=== PATIENT | female | born 1945 | race Caucasian/White ===

== ENCOUNTER 2016-08-22 22:00 | Emergency (ER) | payer OTHER ==
[~2016-08-22] VITALS: Ht 162.6 cm; Wt 100.0 kg
[~2016-08-22 22:00] MED LIST: CERTKIT IM; FOLI1TAB7 PO; LISI-787 PO; MULT-506 PO; PRED10TA PO; TRAM-10 PO
[2016-08-22 22:03] VITALS: TEMP 36.6; Ht 162.6 cm; Wt 100.0 kg
[2016-08-22] MEDS ORDERED: ONDANSETRON INJ 2 MG/ML 2 ML VIAL IV STA (22:44)
[2016-08-22 22:53] LABS: BASO % 0.1 %; BASO ABS # 0.01 K/uL (0-0.2); COMPLETE YES; EOS % 0.7 %; IG% 0.3 %; LYMPH % 7.6 %; LYMPH ABS # 0.78 K/uL (1.2-3.4); MEAN CELL VOLUME 91.5 fL (80-100); MEAN CORPUSCULAR HEMOGLOBIN 32.3 pg (25-34); MEAN CORPUSCULAR HGB CONC 35.3 g/dl (32-36); MEAN PLATELET VOLUME 10.7 fL (7.4-10.4); MONO % 5.6 %; NEUT % 85.7 %; PLATELET COUNT 262 K/uL (130-400); RED BLOOD COUNT 4.37 M/uL (4.2-5.4)
[2016-08-22 23:12] LABS: BUN/CREATININE RATIO 20.4 (10-20); CALCIUM 8.8 mg/dl (8.5-10.1); CREATININE 1.2 mg/dl (0.60-1.20); POTASSIUM 3.6 mmol/L (3.5-5.1)
[2016-08-22] MEDS ORDERED: PROMETHAZINE HCL INJ 12.5 MG in SODIUM CHLORIDE 0.9% 50ML 50 ML IV STA (23:15)
--- NOTE | 2016-08-22 23:30 | EMERGENCY ROOM VISIT NOTE ---
History Report prepared by [employer]tera: Jesse Rose Under the Supervision of: Dr. Amelia Muniz M.D. First contact with patient: 23:10 Chief Complaint: VOMITING Stated Complaint: VOMITING Nursing Triage Summary: Patient presents with a c/c of global abdominal pain with associated vomiting and diarrhea that started at approximatley 1500. Negative bloody diarrhea, negative chest pain, SOB, fever, chills. History of Present Illness The patient is a 71 year old female who presents to the Emergency Room with complaints of persistent vomiting that began this afternoon 8 hours prior to arrival. The patient states that she began vomiting this afternoon at 1530, and has been vomiting persistently ever since. She notes that the vomiting has also been accompanied by some diarrhea. There has been no blood in the vomit or stool , and she has no known sick family members. The patient does have a history of cholecystectomy, appendectomy, and hysterectomy. She is not on any blood thinning medications. 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 A total of 10 systems reviewed and were otherwise negative. Past Medical & Surgical Medical Problems: (1) HTN (hypertension) Family History FHx: gallbladder disease Hypertension Social History Smoking Status: Never Smoker Marital Status: Housing Status: lives with significant other Occupation Status: employed Current/Historical Medications Scheduled Alendronate/Cholecalciferol (Fosamax+D 70MG/2800 Iu), 1 TABLET PO WK Certolizumab Pegol (Cimzia), 1 DOSE IM MONTHLY Cranberry (Vaccinium Macrocarp (Cranberry), 1,000 MG PO DAILY Folic Acid (Folvite), 1 MG PO DAILY Lisinopril/Hctz (Zestoretic 20MG/12.5MG), 1 TAB PO DAILY Methotrexate (Methotrexate), 2.5 MG PO DIRECTED Multivitamin (Multivitamin), 1 TAB PO DAILY Prednisone Tab (Prednisone), 5 MG PO DAILY [arthritis injection], 1 DOSE INJ MONTHLY Scheduled PRN Tramadol (Ultram), 50 MG PO TID PRN for Pain Allergies Uncoded Allergies: PNC DEMEROL PERCOCET (Allergy, Unknown, 08/03/05) Physical Exam Vital Signs Date Time Temp Pulse Resp B/P Pulse Ox O2 Delivery O2 Flow Rate FiO2 08/23/16 00:48 87 20 125/66 93 08/22/16 23:36 83 20 124/66 95 Room Air 08/22/16 22:03 36.6 20 20 132/75 96 Room Air Physical Exam Vital signs reviewed. General: Obese female, in no significant distress. HEENT: Edentulous. No scleral icterus, PERRLA, neck supple. Atraumatic. Cardiovascular: Regular rate and rhythm, no extra sounds. Pulmonary: Clear to auscultation bilaterally, normal work of breathing. Abdomen: No tympani to percussion. Soft, nontender, nondistended, positive bowel sounds. Musculoskeletal: Atraumatic, no peripheral edema. Neurologic: Patient awake alert and oriented x 3, full strength in all 4 extremities. Cranial nerves 2 through 12 grossly intact. Skin: Warm, dry, no rash Medical Decision & Procedures Laboratory Results 08/22/16 22:40 Red Blood Count 4.37, Mean Corpuscular Volume 91.5, Mean Corpuscular Hemoglobin 32.3, Mean Corpuscular Hemoglobin Concent 35.3, Mean Platelet Volume 10.7, Neutrophils (%) (Auto) 85.7, Lymphocytes (%) (Auto) 7.6, Monocytes (%) (Auto) 5.6, Eosinophils (%) (Auto) 0.7, Basophils (%) (Auto) 0.1, Neutrophils # (Auto) 8.83, Lymphocytes # (Auto) 0.78, Monocytes # (Auto) 0.58, Eosinophils # (Auto) 0.07, Basophils # (Auto) 0.01 08/22/16 22:40 Test 08/22/16 22:40 White Blood Count 10.30 K/uL (4.8-10.8) Red Blood Count 4.37 M/uL (4.2-5.4) Hemoglobin 14.1 g/dL (12.0-16.0) Hematocrit 40.0 % (37-47) Mean Corpuscular Volume 91.5 fL (80-100) Mean Corpuscular Hemoglobin 32.3 pg (25-34) Mean Corpuscular Hemoglobin Concent 35.3 g/dl (32-36) Platelet Count 262 K/uL (130-400) Mean Platelet Volume 10.7 fL (7.4-10.4) Neutrophils (%) (Auto) 85.7 % Lymphocytes (%) (Auto) 7.6 % Monocytes (%) (Auto) 5.6 % Eosinophils (%) (Auto) 0.7 % Basophils (%) (Auto) 0.1 % Neutrophils # (Auto) 8.83 K/uL (1.4-6.5) Lymphocytes # (Auto) 0.78 K/uL (1.2-3.4) Monocytes # (Auto) 0.58 K/uL (0.11-0.59) Eosinophils # (Auto) 0.07 K/uL (0-0.5) Basophils # (Auto) 0.01 K/uL (0-0.2) RDW Standard Deviation 45.0 fL (36.4-46.3) RDW Coefficient of Variation 13.7 % (11.5-14.5) Immature Granulocyte % (Auto) 0.3 % Immature Granulocyte # (Auto) 0.03 K/uL (0.00-0.02) Anion Gap 10.0 mmol/L (3-11) Est Creatinine Clear Calc Drug Dose 50.2 ml/min Estimated GFR () 53.0 Estimated GFR (Non- 45.8 BUN/Creatinine Ratio 20.4 (10-20) Calcium Level 8.8 mg/dl (8.5-10.1) Total Bilirubin 1.2 mg/dl (0.2-1) Aspartate Amino Transf (AST/SGOT) 20 U/L (15-37) Alanine Aminotransferase (ALT/SGPT) 34 U/L (12-78) Alkaline Phosphatase 74 U/L (45-117) Total Protein 7.5 gm/dl (6.4-8.2) Albumin 3.8 gm/dl (3.4-5.0) Globulin 3.7 gm/dl (2.5-4.0) Albumin/Globulin Ratio 1.0 (0.9-2) Lipase 197 U/L (73-393) Laboratory results per my review. Medications Administered Medications (Trade) Dose Ordered Sig/Alecia Route Start Time Stop Time Status Last Admin Dose Admin Ondansetron HCl 4 mg 4 mg NOW STAT IV 08/22/16 22:44 08/22/16 22:46 DC 08/22/16 22:55 4 MG Promethazine HCl/ Sodium Chloride (Phenergan Inj/ Nss 50ml) 50.5 ml @ 204 mls/hr NOW STAT IV 08/22/16 23:15 08/22/16 23:29 DC 08/22/16 23:33 204 MLS/HR Ondansetron HCl (ZOFRAN ODT 4MG Home Pack) 1 homepack UD ONCE PO 08/23/16 00:45 08/23/16 00:46 DC 08/23/16 00:45 1 HOMEPACK ED Course 2314: Past medical records reviewed. The patient was evaluated in room C12. A complete history and physical examination was performed. 231: Ordered Promethazine HCl 12.5mg IV. 5: Ordered Zofran 1 homepack PO. 0047: Upon reevaluation, the patient appeared to have improvement of her symptoms. I discussed findings with her. She verbalized agreement of the treatment plan. The patient was discharged home. Medical Decision Differential diagnosis: Etiologies such as gastroenteritis, food borne illness, infections, appendicitis , diverticulitis, inflammatory bowel disease, obstruction, GI bleed, biliary pathology, as well as others were entertained. This pt was evaluated and appeared to be in no distress. IV access was obtained and pt was hydrated with NSS and given IV zofran with some improvement. Lab work was fairly unrevealing. Pt required IV phenergan d/t continued nausea. Pt was doing well and felt comfortable for d/c. She was d/c with zofran HP and f/u with her PCP this week for reevaluation. She will return to the ED for worsening of symptoms or any medical concerns. Impression Primary Impression: Vomiting Additional Impression: Diarrhea Scribe Attestation The scribe's documentation has been prepared under my direction and personally reviewed by me in its entirety. I confirm that the note above accurately reflects all work, treatment, procedures, and medical decision making performed by me. Departure Information Dispostion Home / Self-Care Referrals Jose Rivera M.D.(JUAN DANIEL) (PCP) Forms HOME CARE DOCUMENTATION FORM, IMPORTANT VISIT INFORMATION Patient Instructions My [facility] Additional Instructions Diagnosis: Vomiting and diarrhea Zofran 4 mg ODT every 6 hours as needed for nausea. Cipro on clear fluids and advance her diet slowly as tolerated. Avoid greasy and spicy foods. Avoid dairy until symptoms resolve. Follow-up with your doctor this week for reevaluation if symptoms persist. Return to the ER for worsening of symptoms or any medical concerns. Problem Qualifiers Primary Impression: Vomiting Vomiting type: unspecified Vomiting Intractability: unspecified Nausea presence: unspecified Qualified Codes: R11.10 - Vomiting, unspecified Additional Impression: Diarrhea Diarrhea type: unspecified type Qualified Codes: R19.7 - Diarrhea, unspecified
[2016-08-23] MEDS ORDERED: METH2.5T PO (00:08)
[2016-08-23] MEDS ORDERED: FSMD/70 PO (00:09)
[2016-08-23] MEDS ORDERED: CRAN500C2 PO (00:11)
[2016-08-23] MEDS ORDERED: ARTHRITIS INJ (00:12)
[2016-08-23] MEDS ORDERED: ONDANSETRON HOME PACK 4MG OD TAB PO ONE (00:45)
[2016-08-23 00:48] VITALS: BP 125/66; PULSE 87; O2SAT 93
== END 2016-08-23 00:51 | disposition home or self-care (01) ==
LOC: C.EDB 22:01 → C.EDC 08-23 00:51
DX: R11.10 Vomiting, unspecified (principal); R19.7 Diarrhea, unspecified; I10 Essential (primary) hypertension; E66.9 Obesity, unspecified; Z79.899 Other long term (current) drug therapy; Z88.5 Allergy status to narcotic agent; Z82.49 Family history of ischemic heart disease and other diseases of the circulatory system; Z83.79 Family history of other diseases of the digestive system

== ENCOUNTER 2020-09-23 06:22 | Inpatient (IN) ==
--- NOTE | 2020-09-02 09:40 | PAT Medication Instructions ---
Medication Instructions Date of Service September 02, 2020 Home Medications Medication Instructions Recorded multivit with 1 tab PO DAILY #30 tab 12/18/18 xddueurz-exmz-YB-lutein 8 mg iron-400 mcg-300 mcg tablet tramadol 50 mg tablet 50 mg PO Q6H PRN #30 tab 07/29/20 tramadol 50 mg tablet 50 mg PO TID PRN #30 tab 08/25/20 alendronate 10 mg tablet 10 mg PO QAM multivit with qrhnbelq-gppr-UQ-lutein 8 mg iron-400 mcg-300 mcg tablet 1 tab PO DAILY prednisone 5 mg tablet 5 mg PO QAM acetaminophen 1,000 mg PO BID PRN MDD atorvastatin 20 mg PO QPM folic acid 1 mg PO DAILY lisinopril-hydrochlorothiazide 1 tab PO QAM tramadol 50 mg tablet 50 mg PO Q6H PRN certolizumab pegol [Cimzia] 400 mg SUBCUT MONTHLY tramadol 50 mg tablet 50 mg PO TID PRN ASK your prescriber and surgeon certolizumab pegol [Cimzia] 400 mg SUBCUT MONTHLY alendronate 10 mg tablet 10 mg PO QAM STOP taking 2 weeks before surgery (or as soon as possible if surgery is within 2 weeks) multivit with jjtcqytz-psli-CM-lutein 8 mg iron-400 mcg-300 mcg tablet 1 tab PO DAILY DO NOT take the morning of surgery folic acid 1 mg PO DAILY lisinopril-hydrochlorothiazide 1 tab PO QAM Take morning of surgery With a small sip of water, OTHERWISE NOTHING TO EAT OR DRINK AFTER MIDNIGHT: prednisone 5 mg tablet 5 mg PO QAM acetaminophen 1,000 mg PO BID PRN MDD (okay to take up to 4 hours prior to surgery if needed) tramadol 50 mg tablet 50 mg PO Q6H PRN (okay to take up to 4 hours prior to surgery if needed) tramadol 50 mg tablet 50 mg PO TID PRN (okay to take up to 4 hours prior to surgery if needed) Take evening before surgery acetaminophen 1,000 mg PO BID PRN MDD (if needed) atorvastatin 20 mg PO QPM tramadol 50 mg tablet 50 mg PO Q6H PRN (if needed) tramadol 50 mg tablet 50 mg PO TID PRN (if needed) Other Notes If you have any questions please call us at [phone] or [phone] or [phone] or [phone]
--- NOTE | 2020-09-03 10:40 | Anesthesiology Consultation ---
Date of Service September 03, 2020 Assessment & Plan (1) Encounter for pre-operative examination: Per assessment on 09/03: Travel screen negative. No known COVID-19 positive contacts or current COVID-19 related symptoms. Patient received initial COVID vaccine 08/13 (getting second vaccine today, 09/03). Surgeon arranging preop COVID testing. Awaiting results. Chart Review Chart Review: Acceptable Risk for Surgery and Patient seen in Pre Admission Testing Teaching & Discussion Pre-Anesthesia Teaching/Discussion Notes: Instructed NPO after midnight before surgery,except medications with 15 cc of water. Medication instructions provided according to the PAT guidelines. History Surgery Operation Date: 09/23/20 10:55 Proposed Procedures p Right Reverse Total Shoulder Arthroplasty - David Vega, Height/Weight Height: 5 ft 4 in Weight: 104.7 kg Allergies Allergy/AdvReac Type Severity Reaction Status Date / Time acetaminophen AdvReac Mild Nausea Verified 08/15/20 11:25 [From Darvocet-N] oxycodone [From Percocet] AdvReac Mild Nausea, Verified 09/02/20 10:49 confusion propoxyphene AdvReac Mild Nausea Verified 08/15/20 11:25 [From Darvocet-N] Medications Home Medications Medication Instructions Recorded Confirmed Last Taken alendronate 10 mg tablet 10 mg PO QAM tab 12/18/18 08/15/20 01/29/19 multivit with 1 tab PO DAILY #30 tab 12/18/18 08/15/20 03/11/20 xolxxufy-bhzt-RL-lutein 8 mg iron-400 mcg-300 mcg tablet prednisone 5 mg tablet 5 mg PO QAM tab 12/18/18 08/15/20 03/12/20 04:30 acetaminophen 1,000 mg PO BID PRN MDD \\ 01/15/19 08/15/20 03/11/20 atorvastatin 20 mg PO QPM 02/20/20 08/15/20 03/11/20 folic acid 1 mg PO DAILY 02/20/20 08/15/20 03/11/20 lisinopril-hydrochlorothiazide 1 tab PO QAM 02/20/20 08/15/20 03/12/20 04:30 tramadol 50 mg tablet 50 mg PO Q6H PRN #30 tab 07/29/20 08/15/20 Unknown certolizumab pegol [Cimzia] 400 mg SUBCUT MONTHLY 08/15/20 08/15/20 Unknown tramadol 50 mg tablet 50 mg PO TID PRN #30 tab 08/25/20 Unknown Past Medical History Medical History Basal cell carcinoma of lower extremity s/p excision HTN (hypertension) Obesity Osteoarthritis Rheumatoid arthritis Exercise / Class Metabolic Activity III < 4 Walking/Shop/Light housework Past Family History Family History Grandfather (Maternal) Prostate cancer Other Family history non-contributory Denies family history of Colon cancer Ovarian cancer Myocardial infarction Breast cancer Past Surgical History Surgical History History of cataract surgery R/L (2019) History of surgery jaw bone implant History of tooth extraction Hx of knee surgery fatty tumor removed S/P appendectomy S/P bunionectomy S/P cholecystectomy S/P hysterectomy S/P tonsillectomy and adenoidectomy Social History Smoking Status: Never smoker Do You Dip or Chew Tobacco: No Hx Alcohol Use: Yes Alcohol type: beer alcohol intake frequency: holidays/special occasions only Hx Substance Use: No substance use type: does not use Review of Systems Occasional snoring. No apnea events. Patient denies chest pain, shortness of breath, fever, chills, cough, wheezing, palpitations. Physical Exam Vital Signs VITALS BP 146/88 P 74 TEMP 98.5 SP02 95%RA RESP 16 PHYSICAL Full neck and c-spine range of motion. Full TMJ range of motion. TMD 4 finger breaths (difficult to palpate) Mallampati Score 2 Dentition: full dentures upper/lower, lower metal bridge for denture placement Lungs: clear throughout to auscultation Cardiac: regular rate and rhythm with occasional extra beats, no murmurs noted Spine: normal Carotid arteries: negative bruit Extremities: no edema Thick neck Testing Laboratory Results 09/03/20 11:07 09/03/20 11:07 PT 10.4 Seconds (9.0-12.0) 09/03/20 11:07 INR 1.0 (0.9-1.1) 09/03/20 11:07 APTT 28.5 Seconds (21.0-31.0) 09/03/20 11:07 Blood Type O Positive 09/03/20 11:07 Antibody Screen NEGATIVE 09/03/20 11:07 Electrocardiogram Date: 09/03/20 SR with frequent PVC's at 79bpm. Otherwise "normal" ECG. No significant change compared to 01/15/19 per junior network administrator review. Chest X-Ray Date: 09/03/20 FINDINGS: PA and lateral chest radiographs are compared to study dated 08/19/2014. The heart is mildly enlarged noting atherosclerotic calcification of the thoracic aorta. The pulmonary vasculature is noncongested. There is mild bibasilar scarring/atelectasis. No airspace consolidation or pleural effusion is identified. There is no pneumothorax. The skeletal structures are osteopenic. The bony thorax appears intact. IMPRESSION: Mild cardiac enlargement with no active disease in the chest. Cardiac Catheterization Date: 09/03/20 FINDINGS: There are multilevel arthritic changes. The prevertebral soft tissues are normal. There is no evidence of instability on flexion or extension. IMPRESSION: No acute fractures. Multilevel arthritic change. No evidence of instability on flexion or extension
[2020-09-03 11:51] LABS: Basophils # (auto) 0.02 K/uL (0-0.2); Basophils % (auto) 0.2 %; Eosinophils # (auto) 0.07 K/uL (0-0.5); Eosinophils % (auto) 0.8 %; Hematocrit (blood only) 41.7 % (37-47); Hemoglobin 13.8 g/dL (12.0-16.0); Immature Granulocytes # (auto) 0.03 K/uL (0.00-0.02); Immature Granulocytes % (auto) 0.3 %; Lymphocytes # (auto) 1.61 K/uL (1.2-3.4); Lymphocytes % (auto) 18.4 %; Mean Corpuscular Hemoglobin 30.9 pg (25-34); Mean Corpuscular Hgb Conc 33.1 g/dL (32-36); Mean Corpuscular Volume 93.3 fL (80-100); Mean Platelet Volume 12.3 fL (7.4-10.4); Monocytes % (auto) 6.8 %; Neutrophils # (auto) 6.43 K/uL (1.4-6.5); Neutrophils % (auto) 73.5 %; Platelet Count 291 K/uL (130-400); RDW Coefficient of Variation 13.9 % (11.5-14.5); RDW Standard Deviation 47.2 fL (36.4-46.3); Red Blood Count 4.47 M/uL (4.2-5.4); White Blood Count 8.76 K/uL (4.8-10.8)
--- NOTE | 2020-09-03 11:52 | XRay Report ---
TWO VIEW CHEST CLINICAL HISTORY: Preoperative examination. FINDINGS: PA and lateral chest radiographs are compared to study dated 08/19/2014. The heart is mildly enlarged noting atherosclerotic calcification of the thoracic aorta. The pulmonary vasculature is no ncongested. There is mild bibasilar scarring/atelectasis. No airspace consolidation or pleural effusi on is identified. There is no pneumothorax. The skeletal structures are osteopenic. The bony thorax a ppears intact. IMPRESSION: Mild cardiac enlargement with no active disease in the chest. ACT 112: Negative or not required by law. Electronically signed by: Ravi Aguilar M.D. 09/03/2020 11:51 AM
[2020-09-03 12:05] LABS: Partial Thromboplastin Ratio 1.1; Partial Thromboplastin Time 28.5 Seconds (21.0-31.0); Prothrombin Time 10.4 Seconds (9.0-12.0)
--- NOTE | 2020-09-03 12:41 | XRay Report ---
FLEXION AND EXTENSION LATERAL VIEWS OF THE CERVICAL SPINE (3 VIEWS) CLINICAL HISTORY: RHEUMATOID ARTHRITIS preoperative evaluation COMPARISON STUDY: No previous studies for comparison. FINDINGS: There are multilevel arthritic changes. The prevertebral soft tissues are normal. There is no evidence of instability on flexion or extension. IMPRESSION: 1. No acute fractures 2. Multilevel arthritic change 3. No evidence of instability on flexion or extension ACT 112: Negative or not required by law. Electronically signed by: Graeme Rutherford M.D. 09/03/2020 12:39 PM
[2020-09-03 13:31] LABS: BUN Creatinine Ratio 21.2 (10-20); Calcium 10.6 mg/dl (8.5-10.1); Creatinine Clr Calc Pharmacy 46.2 ml/min; Est GFR (African American) 48.6; Est GFR (Non-African American) 41.9; Potassium 4.9 mmol/L (3.5-5.1)
--- NOTE | 2020-09-03 15:30 | Electrocardiogram Report ---
Test Reason : Blood Pressure : / mmHG Vent. Rate : 079 BPM Atrial Rate : 079 BPM P-R Int : 174 ms QRS Dur : 084 ms QT Int : 392 ms P-R-T Axes : 063 028 058 degrees QTc Int : 449 ms Sinus rhythm with frequent Premature ventricular complexes Otherwise normal ECG When compared with ECG of 15-JAN-2019 15:50, No significant change was found Confirmed by Roque Dutta ([id number]) on 09/03/2020 3:30:25 PM Referred By: David Vega Confirmed By:Roque Dutta
--- NOTE | 2020-09-18 10:54 | History & Physical Report ---
Date of Service September 18, 2020 Assessment & Plan (1) Rotator cuff arthropathy of right shoulder: We will proceed with a right reverse shoulder arthroplasty. Postoperatively she will be placed in a sling and kept overnight in the hospital for postoperative medical management. She plans to go to outpatient physical therapy upon discharge. History of Present Illness Chief Complaint: Cuff arthropathy of the right shoulder. Primary Care Provider: Jose Rivera MD Deborah is a pleasant 75-year-old female who has been having right shoulder pain since April 2020. 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 MRI and clinical examination have been diagnostic for rotator cuff arthropathy of the right shoulder. After failing conservative treatment, she has elected to proceed with a right reverse shoulder arthroplasty.. Allergies Allergy/AdvReac Type Severity Reaction Status Date / Time acetaminophen AdvReac Mild Nausea Verified 08/15/20 11:25 [From Darvocet-N] oxycodone [From Percocet] AdvReac Mild Nausea, Verified 09/02/20 10:49 confusion propoxyphene AdvReac Mild Nausea Verified 08/15/20 11:25 [From Darvocet-N] Home Medications Medication Instructions Recorded Confirmed Type alendronate 10 mg tablet 10 mg PO QAM tab 12/18/18 08/15/20 History multivit with 1 tab PO DAILY #30 tab 12/18/18 08/15/20 Rx uyowpcqy-gvff-JL-lutein 8 mg iron-400 mcg-300 mcg tablet prednisone 5 mg tablet 5 mg PO QAM tab 12/18/18 08/15/20 History acetaminophen 1,000 mg PO BID PRN MDD \ 01/15/19 08/15/20 History folic acid 1 mg PO DAILY 02/20/20 08/15/20 History lisinopril-hydrochlorothiazide 1 tab PO QAM 02/20/20 08/15/20 History tramadol 50 mg tablet 50 mg PO Q6H PRN #30 tab 07/29/20 08/15/20 Rx certolizumab pegol [Cimzia] 400 mg SUBCUT MONTHLY 08/15/20 08/15/20 History tramadol 50 mg tablet 50 mg PO TID PRN #30 tab 08/25/20 Rx atorvastatin 20 mg tablet 20 mg PO QPM #90 tab 09/15/20 Rx Past Med/Surg History Medical History Basal cell carcinoma of lower extremity s/p excision HTN (hypertension) Obesity Osteoarthritis Rheumatoid arthritis Surgical History History of cataract surgery R/L (2019) History of surgery jaw bone implant History of tooth extraction Hx of knee surgery fatty tumor removed S/P appendectomy S/P bunionectomy S/P cholecystectomy S/P hysterectomy S/P tonsillectomy and adenoidectomy Family History Grandfather (Maternal) Prostate cancer Other Family history non-contributory Denies family history of Colon cancer Ovarian cancer Myocardial infarction Breast cancer Social History Smoking Status: Never smoker Second Hand Exposure: No; Hx Alcohol Use: Yes Alcohol type: beer Hx Substance Use: No Preferred Language: Luxembourgish Communication Ability: Effective Chemical Analytical Sampler Required: No Beliefs That Will Affect Care: None Current Living Situation: Spouse Feels Safe at Home: Yes Assistive Devices: None Review of Systems All systems reviewed & are unremarkable except as noted in HPI & below. Physical Exam On physical examination of the right shoulder, she has about 3 out of 5 motion with the full can test and external rotation. She has decreased range of motion throughout. She has pain in the subacromial region and over the glenohumeral joint line.. Constitutional WD/WN, vitals as above Eyes PERRL, conjunctivae normal, anicteric sclerae ENMT external ear and nose normal, oropharynx normal Neck trachea midline, no thyromegaly Respiratory normal respiratory effort Cardiovascular RRR, no murmur, no edema Gastrointestinal (Abdomen) normal bowel sounds, soft, nontender, no hepatosplenomegaly Psychiatric A+Ox3, euthymic affect Results & Data Results & Data Laboratory Results . Diagnostic Findings X-rays of the right shoulder do show advanced osteoarthritis with superior migration of the humeral head on the glenoid. MRI of the right shoulder shows a large retracted right rotator cuff tear.. PG Care Time/CCT Total # of Minutes Spent Total Time Spent with Patient: Total time spent is greater than 50% in psych coordinator rdination of care (as documented) at patient's floor/unit and/or counseling patient: Coding Level of Care Code None Diagnoses Rotator cuff arthropathy of right shoulder M12.811
[~2020-09-23 06:22] MED LIST changes: +ACETAMINOPHEN 500 MG TAB PO SCH; -CERTKIT IM; +FAMOTIDINE 20 MG TAB PO SCH; -FOLI1TAB7 PO; +GABAPENTIN 300 MG CAP PO SCH; -LISI-787 PO; +LR 15ML/HR IV SCH; +LR 60ML/HR IV SCH; -MULT-506 PO; -PRED10TA PO; +ROPIVACAINE 0.5% HCL/PF 150 MG, BUPIVACAINE 0.75% MPF 20 ML, EPINEPHrine 30MG/30ML (OR ... INSTIL SCH; -TRAM-10 PO; +TRANEXAMIC ACID 1,000 MG **IV Intra-op IV SCH; +TRANEXAMIC ACID 1,000 MG **IV Pre-op IV SCH; +ceFAZolin 2000MG 2,000 MG/15 ML SYR IV SCH; +dexAMETHasone 4 MG TAB PO SCH
[2020-09-23] MEDS ORDERED: BUPIVACAINE 0.5 % 5 MG/1 ML PF 10ML VIAL ONE (06:27)
--- NOTE | 2020-09-23 06:56 | History & Physical Bridge Note ---
Date of Service September 23, 2020 History & Physical Bridge Note I have examined the patient, reviewed the History & Physical and in the interval since the performance of the History & Physical I have noted the following changes of clinical significance: no changes noted
[2020-09-23] MEDS ORDERED: LIDOCAINE HCL 2% 2 ML VIAL/AMP(20MG/ML) INFIL ONE (07:36)
[2020-09-23] MEDS ORDERED: SUCCINYLCHOLINE CHLORIDE 20 MG/ML 10 ML VIAL IV ONE (07:36)
[2020-09-23] MEDS ORDERED: PROPOFOL IV EMULSION 10 MG/ML 20 ML VIAL IV ONE (07:36)
[2020-09-23] MEDS ORDERED: KETAMINE 50 MG/5 ML SYRINGE ONE (07:36)
[2020-09-23] MEDS ORDERED: MIDAZOLAM HCL 1 MG/ML 2ML VIAL ONE (07:36)
[2020-09-23] MEDS ORDERED: fentaNYL citrate 100 MCG/2 ML VIAL ONE (07:36)
[2020-09-23] MEDS ORDERED: ONDANSETRON INJ 2 MG/ML 2 ML VIAL ONE (07:36)
[2020-09-23] MEDS ORDERED: ROCURONIUM BROMIDE 10 MG/ML 5 ML VIAL IV ONE (07:36)
[2020-09-23] MEDS ORDERED: DEXAMETHASONE SOD INJ 4 MG/ML VIAL ONE (07:36)
[2020-09-23] MEDS ORDERED: ORTHO JOINT ANESTHETIC ONE (08:52)
[2020-09-23] MEDS ORDERED: PHENYLEPHRINE 100MCG/ML 5ML SYR ONE (09:54)
[2020-09-23] MEDS ORDERED: ePHEDrine sulfate 50 MG/ML SYR ONE (09:54)
--- NOTE | 2020-09-23 10:28 | Operative Report ---
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 I identified the patient and participated in the time-out.: Yes Procedure Operation Date: 09/23/20 09:05 Actual Procedures p Right Reverse Total Shoulder Arthroplasty(Right) with open biceps tenodesis as a distinct and separate procedure (modifier 59)- David Vega DO Surgeon David Vega DO Gate Shear Operator David Segal PAC Estimated Blood Loss 200 Findings Consistent with Post-Op Diagnosis Specimens Right humeral head Complications none Disposition Disposition: Recovery Room Indications Deborah is a pleasant 75-year-old female who presented my office with chronic worsening right shoulder pain and weakness. MRI and x-rays were diagnostic for rotator cuff arthropathy of the right shoulder. After failing extensive conservative treatment, she elected proceed with a right reverse shoulder arthroplasty. Description of Procedure A CPT code modifier 59: The long head of the biceps tendon was enlarged and inflamed consistent with tendinopathy. A tenodesis was opted. This was a separate and distinct portion of the procedure. For these reasons, a CPT code modifier 59 will be added to this case. Implants used: I used a [employer] Comprehensive reverse total shoulder arthroplasty system with a size 13 press fit micro humeral stem, a +3 offset humeral tray and a standard humeral bearing, a 25 mm small augment baseplate with a 6.5 mm central screw and superior and inferior locking screws, and a size 40 mm eccentric glenosphere. Deborah arrived at [facility] for the above procedure. She was seen in the preoperative holding area and the operative extremity was identified and signed. She was given a preoperative antibiotic, TXA, and an interscalene nerve block. She was taken back to the operating room, laid on table in supine position, and put under general anesthesia. She was then put into the beachchair position. The shoulder was then prepped and draped in sterile fashion. A timeout was done and the patient and the operative extremity was properly identified. A deltopectoral approach was used. Dissection was taken down through the fascia and the deltoid was retracted laterally and the conjoined tendon was retracted medially. The anterior shoulder was exposed. The biceps groove was opened up and the biceps tendon was examined extensively. The biceps tendon demonstrated enlargement and inflammatory changes consistent with longstanding inflammation in the context of osteoarthritis and cuff arthropathy. The long head of the biceps tendon was then tenodesed to the upper border of the pectoralis major. This was a separate and distinct portion of the procedure. The subscapularis was then directly released off the lesser tuberosity with a peel technique. The inferior capsule was released and the humeral head was dislocated. A canal finding reamer was sent down the center of the humeral canal. Seq uential reaming up to a size 13 reamer was done. Off that reamer, a proximal humeral resection guide was placed. The proximal humerus was resected at 135 of inclination and 25 of retroversion. Osteophytes were then removed and the glenoid was exposed. Time was spent doing a complete capsular and labral release. The glenoid guide was then placed in the inferior aspect of the glenoid. A 3.2 mm Steinmann pin was then placed into the glenoid vault at 10 of inclination. The glenoid baseplate was then reamed. The final size 25 mm small augment baseplate was then impacted in the place. A 6.5 mm central screw was then placed followed by superior and inferior locking screws. A 40 mm eccentric glenosphere was then impacted into place. Surrounding soft tissues were then injected with 100 cc an orthopedic pain control cocktail. The proximal humerus was then exposed. Sequential broaching of the humerus up to a size 13 broach was done. Off that broach a +3 offset humeral tray was trialed. The shoulder was then reduced, brought through a full range of motion, and felt to be stable. The shoulder was then dislocated and the broach was removed. The final size 13 micro press-fit humeral stem was then impacted into place. A standard humeral bearing was then snapped onto a +3 offset humeral tray. The humeral tray was then impacted onto the humeral stem. The shoulder was once again reduced, brought through a full range of motion, and felt to be stable. The subscapularis was then tenodesed back to the lesser tuberosity with transosseous FiberWire sutures and side to side sutures with the arm in 45 of external rotation. A dilute betadyne lavage was then done for 3 minutes. The joint was then irrigated with normal saline solution. Hemostasis was obtained. The interval was closed with 2-0 Vicryl suture. The skin was then closed with 2-0 Vicryl and tami. A Silverlon dressing was placed and the arm was rested in a regular arm sling. She was then extubated and transferred to a hospital bed. She taken to the postanesthesia care unit in stable condition. She tolerated the procedure well. David Segal PA-C, was present for the entire procedure. He was critical for patient positioning, prepping, draping, retraction exposure, wound closure and application of sterile dressing. I attest to the content of the Intraoperative Record and any orders documented therein. Any exceptions are noted below.
[2020-09-23] MEDS ORDERED: ePHEDrine sulfate 50 MG/ML AMP IV PRN (10:31)
[2020-09-23] MEDS ORDERED: ATROPINE SULFATE 0.1 MG/ML 10ML SYR IV PRN (10:31)
[2020-09-23] MEDS ORDERED: PROMETHAZINE HCL 12.5 MG in SODIUM CHLORIDE 0.9% 50 ML IV PRN (10:31)
[2020-09-23] MEDS ORDERED: LABETALOL HCL IV 5 MG/ML 20ML IV PRN (10:31)
[2020-09-23] MEDS ORDERED: FLUMAZENIL 0.1 MG/1 ML 10 ML VIAL IV PRN (10:31)
[2020-09-23] MEDS ORDERED: fentaNYL citrate 100 MCG/2 ML VIAL IV PRN (10:31)
[2020-09-23] MEDS ORDERED: NALOXONE HCL 0.4 MG/1 ML VIAL/CARP IV PRN ×2 (10:31→11:49)
[2020-09-23] MEDS ORDERED: ONDANSETRON INJ 2 MG/ML 2 ML VIAL IV PRN ×2 (10:31→11:49)
--- NOTE | 2020-09-23 11:14 | XRay Report ---
XR shoulder RT min 2V routine CLINICAL HISTORY: Post shoulder surgery COMPARISON: Right shoulder radiographs June 03, 2020. FINDINGS: Alignment of the reverse total right shoulder arthroplasty is anatomic. There is no peripr osthetic fracture or unexpected radiopaque foreign body. There are skin tami. IMPRESSION: Expected findings following reverse total right shoulder arthroplasty. ACT 112: Negative or not required by law. Electronically signed by: Shaq Bro M.D. 09/23/2020 11:12 AM
--- NOTE | 2020-09-23 11:27 | Anesthesiology Progress Note ---
Date of Service September 23, 2020 Anesthesia Post Procedure Vital Signs Vital Signs: Temp Pulse Pulse Resp BP Pulse Ox 09/23/20 11:20 36.4 C L 84 22 131/79 94 09/23/20 11:10 87 22 133/79 94 09/23/20 11:00 91 H 20 142/89 H 95 09/23/20 10:50 36.3 C L 87 22 150/89 H 93 09/23/20 07:00 36.8 C 80 18 153/103 H 97 Pain Intensity Right Shoulder: Pain Intensity: 9 Transfer of Care Handoff Completed per policy Notes Mental Status: alert / awake / arousable Patient Amnestic to Procedure: Yes Nausea / Vomiting: adequately controlled Pain: adequately controlled Airway Patency, RR, SpO2: stable & adequate BP & HR: stable & adequate Hydration State: stable & adequate Anesthetic Complications: no major complications apparent
[2020-09-23] MEDS ORDERED: METOCLOPRAMIDE HCL INJ 5 MG/ML 2 ML VIAL IV PRN (11:49)
[2020-09-23] MEDS ORDERED: MAGNESIUM HYDROXIDE SUSP 30 ML UDC PO PRN (11:49)
[2020-09-23] MEDS ORDERED: HYDROmorphone INJ 0.5 MG/0.5 ML SYR IV PRN (11:49)
[2020-09-23] MEDS ORDERED: HYDROCODONE/ACETAMOPHEN 5/325MG TAB PO PRN (11:49)
[2020-09-23] MEDS ORDERED: bisacodyL 10 MG SUPP PR PRN (11:49)
[2020-09-23] MEDS ORDERED: traMADol HCL 50 MG TABLET PO PRN (11:49)
[2020-09-23] MEDS: ACETAMINOPHEN 500 MG TAB PO SCH ×2 (14:50→21:50)
[2020-09-23] MEDS: KETOROLAC TROMETHAMINE 15 MG/ML VIAL IV SCH ×2 (14:51→19:47)
[2020-09-23] MEDS: SODIUM CHLORIDE 0.9% 1000ML 1,000 ML IV SCH ×2 (14:51→21:43)
[2020-09-23] MEDS ORDERED: LORATADINE 10 MG TAB PO ONE (17:51)
[2020-09-23] MEDS: ceFAZolin 2000MG 2,000 MG/15 ML SYR IV SCH (18:41)
[2020-09-23] MEDS: LORATADINE 10 MG TAB PO SCH (18:55)
[2020-09-23] MEDS ORDERED: SENNA 8.6 MG TAB PO SCH (21:00)
[2020-09-23] MEDS ORDERED: ATORVASTATIN 20 MG TAB PO SCH (21:00)
[2020-09-23] MEDS: DOCUSATE SODIUM 100 MG CAP PO SCH (21:50)
[2020-09-24] MEDS: KETOROLAC TROMETHAMINE 15 MG/ML VIAL IV SCH ×2 (03:11→08:53)
[2020-09-24] MEDS: ceFAZolin 2000MG 2,000 MG/15 ML SYR IV SCH (03:12)
[2020-09-24] MEDS: ACETAMINOPHEN 500 MG TAB PO SCH (05:58)
[2020-09-24] MEDS ORDERED: ALENDRONATE SODIUM 10 MG TAB PO SCH (06:30)
--- NOTE | 2020-09-24 06:40 | Orthopedic Progress Note ---
Date of Service September 24, 2020 Assessment & Plan (1) Status post reverse arthroplasty of right shoulder: Overall she is doing very well. She is not having much pain in the right shoulder. She will be seen by physical therapy today for ambulation and range of motion exercises. She can be discharged home later today. She will follow- up with orthopedics in 2 weeks. Rosa Cabrera was seen and examined at bedside this morning. Overall she is doing very well. She is not having any pain in the right shoulder. She was able to get some sleep last night. She has no complaints.. Review of Systems All systems reviewed & are unremarkable except as noted in HPI & below. Physical Exam On physical examination of the right shoulder, the dressing is clean and dry. Her radial, median, and ulnar nerves are checked and intact at her wrist. Her axillary nerve was not checked yet. She is wearing her sling as instructed.. Results & Data Results & Data Laboratory Results . Diagnostic Findings Postoperative x-rays of the right shoulder show the prosthesis to be in anatomic alignment without any evidence of fracture, dislocation, or loosening.. PG Care Time/CCT Total # of Minutes Spent Total Time Spent with Patient: Total time spent is greater than 50% in coordination of care (as documented) at patient's floor/unit and/or counseling patient: Coding Level of Care Code 42931 Post Operative Follow-Up Diagnoses Status post reverse arthroplasty of right shoulder Z96.611
--- NOTE | 2020-09-24 06:41 | Discharge Summary ---
Date of Service September 24, 2020 Admission HPI (Per Admitting) Deborah is a pleasant 75-year-old female who has been having right shoulder pain since April 2020. 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 MRI and clinical examination have been diagnostic for rotator cuff arthropathy of the right shoulder. After failing conservative treatment, she has elected to proceed with a right reverse shoulder arthroplasty.. Admission Exam (Per Admitting) On physical examination of the right shoulder, she has about 3 out of 5 motion with the full can test and external rotation. She has decreased range of motion throughout. She has pain in the subacromial region and over the glenohumeral joint line.. Principal Diagnosis Same as "Discharge Diagnosis" noted below under Discharge Instructions. Discharge Exam On physical examination of the right shoulder, the dressing is clean and dry. Her radial, median, and ulnar nerves are checked and intact at her wrist. Her axillary nerve was not checked yet. She is wearing her sling as instructed.. Discharge Data Procedures Performed Operation Date: 09/23/20 09:05 Actual Procedures p Right Reverse Total Shoulder Arthroplasty(Right) - David Vega DO Ordered Studies 09/23/20 05:00 US - OR guided needle placemen Routine Hospital Course (1) Status post reverse arthroplasty of right shoulder: On September 23, 2020 Deborah arrived at [facility] and underwent a right reverse shoulder arthroplasty without complication. She had a general anesthetic and a right interscalene nerve block. Postoperatively she was placed in a sling and transferred to the general orthopedic floors. Her hospital course was uneventful. On postop day #1 her vital signs were stable and her pain was well controlled. She was able to participate well with physical therapy doing ambulation and range of motion exercises. She was then discharged home. She will follow-up with orthopedics in 2 weeks. PG Care Time/CCT Total # of Minutes Spent Total Time Spent with Patient: Total time spent is greater than 50% in coordination of care (as documented) at patient's floor/unit and/or counseling patient: Discharge Plan Discharge Items Patient Disposition: Home - Home Health Services Reason For Visit: DJD Right Shoulder Discharge Diagnosis: Right reverse shoulder Activity: As commented below Non-emergency contact: Surgeon Call non-emergency contact if: your wound has increased redness and your wound has increased drainage Follow-up/Referrals: Jose Rivera MD [Primary Care Provider] - Diet: Regular Addtl Attending Provider Instructions: Activity and Therapy Recommendations: * If you are using [facility] then therapy will be provided at your home until they feel you have accomplished all of your goals. * If you are using [facility] then Physical Therapy will be provided until they feel you are ready to start Outpatient Physical Therapy. * If you are not using home therapy then Outpatient Physical Therapy should start about 3-5 days from your day of surgery. Therapy will last about 8-12 weeks * Wear your sling for 3 weeks, unless otherwise instructed. You may remove your sling to shower and to dress, but otherwise, you should be in your sling at all times, including while sleeping * The shoulder replacement is very stable and you can use your hand while in the sling * You were shown a series of exercises in the hospital. Do these exercises daily including the exercises you were shown in physical therapy. Medications: * Narcotic You will likely be sent home from the hospital with a prescription for the narcotic pain medication that worked best throughout your stay. * Other medications may be prescribed for specific circumstances. If you have any questions, please call the office at . * Resume previous home medications unless otherwise instructed Dressing Care: Leave the Silverlon dressing in place for 7 days. After 7 days you may remove the dressing. If the incision is not draining then you may leave the tami open to air. If there is a little bit of drainage or if the tami are getting stuck on your clothing then cover the incision with a dry dressing. The tami will be removed at your 2 week follow-up appointment. Showering: You may shower with the Silverlon dressing in place. Do not let the shower spray hit the dressing directly. Pat the Silverlon dressing dry. If the dressing becomes wet underneath, then simply remove the dressing. Keep the incision dry until you are 7 days out from the day of surgery. After 7 days you may remove the Silverlon dressing and shower with the tami exposed. Let soapy water run over the tami and pat them dry. Do not scrub or soak the incision. Things To Watch For: * Drainage from the incision site that occurs more than one week after your surgery. * Increased redness at the incision site. * Fever above 102 degrees Fahrenheit. * Unusual chest pain or shortness of breath. * Call [facility] at with any of the above problems Follow-Up Visit: Follow-up with Dr. Vega's PA (David Segal) 2-3 weeks after your day of surgery. He will remove your tami and answer any questions. If you have any additional questions or concerns, Dr Vega is usually in the office at the same time and will be available An appointment was probably scheduled when you signed-up for surgery in the office. If you have any questions call More detailed instructions as well as Frequently Asked Questions were provided in a folder by our office when you signed-up for surgery. Please review these instructions when you get home. If you have any further questions or concerns, please feel free to call the office at [phone] Pending Studies at Discharge: No Stand-Alone Forms: [facility] Medications and DC Order Prescriptions: Continued atorvastatin 20 mg tablet 20 mg PO QPM Qty: 90 RF: 3 alendronate 10 mg tablet 10 mg PO QAM RF: 0 prednisone 5 mg tablet 5 mg PO QAM RF: 0 Centrum Silver Women 8 mg iron-400 mcg-300 mcg tablet 1 tab PO DAILY Qty: 30 RF: 0 acetaminophen 500 mg Tablet 1,000 mg PO BID MDD \\ PRN (Reason: aches and pains) RF: 0 lisinopril-hydrochlorothiazide 20-12.5 mg tablet 1 tab PO QAM RF: 0 folic acid 1 mg Tablet 1 mg PO DAILY RF: 0 Cimzia 400 mg/2 mL (200 mg/mL x 2) Syringe Kit 400 mg SUBCUT MONTHLY RF: 0 tramadol 50 mg tablet 50 mg PO TID PRN (Reason: pain) Qty: 30 RF: 0 Discontinued tramadol 50 mg tablet 50 mg PO Q6H PRN (Reason: pain) Qty: 30 RF: 0 Discharge Orders: Discharge Order (Routine); Ordered 09/24/20 Ordered By: David Vega Admission Data Admit Date/Time: 09/23/20 10:50 Attending Provider: David Vega Admit Provider: David Vega Primary Care Provider: Jose Rivera
[2020-09-24] MEDS: LORATADINE 10 MG TAB PO SCH (08:52)
[2020-09-24] MEDS: DOCUSATE SODIUM 100 MG CAP PO SCH (08:52)
[2020-09-24] MEDS ORDERED: FOLIC ACID 1 MG TAB PO SCH (09:00)
[2020-09-24] MEDS ORDERED: LISINOPRIL/HCTZ 20/12.5MG 1 TAB TAB PO SCH (09:00)
[2020-09-24] MEDS ORDERED: predniSONE 5 MG TAB PO SCH (09:00)
[2020-09-24] MEDS ORDERED: MULTIVITAMIN TAB PO SCH (09:00)
== END 2020-09-24 12:05 | disposition home or self-care (01) | DRG 483 ==
LOC: ASU 06:22 → 3E 10:50

== ENCOUNTER 2021-05-26 14:23 | Inpatient (IN) ==
[2021-05-26] MEDS ORDERED: ONDANSETRON INJ 2 MG/ML 2 ML VIAL IV STA (14:32)
--- NOTE | 2021-05-26 14:39 | Emergency Department Note ---
History of Present Illness General Chief complaint: Nausea Stated complaint: ILLNESS, Time Seen by Provider: 05/26/21 14:27 Source: patient Mode of arrival: EMS History of Present Illness Provider complaint: Vomiting and diarrhea Onset (ago): hour(s) Location: abdomen Pain Consistency: + intermittent Quality: + other (Vomiting and diarrhea without blood) Relieved By: + none Exacerbated By: + none Associated symptoms: + cough and + nausea/vomiting; no chest pain, no fever/chills, no malaise or no shortness of breath This is a 76-year-old female presents with vomiting and diarrhea starting at 3:30 AM today. The patient states that she has vomited and had diarrhea mu ltiple times. She states the diarrhea is loose without blood. She denies any recent antibiotic use or foreign travel. Her is not ill with similar symptoms. She did not eat anything out of the ordinary. She has no associated abdominal pain. She denies any fever. She did start having sinus congestion and a mild cough over the past 3-4 days. She denies any loss of taste or smell, malaise, or fevers. She has been vaccinated for COVID-19. She was due to get a booster shot tomorrow. She has had no urinary symptoms. She is vaccinated for the flu. Home Medications Medication Instructions Recorded Confirmed Type alendronate 10 mg tablet 10 mg PO QAM tab 12/18/18 05/26/21 History multivit with 1 tab PO DAILY #30 tab 12/18/18 05/26/21 Rx ucrjkuya-[id number]-ZN-lutein 8 mg iron-400 mcg-300 mcg tablet (Centrum Silver Women) prednisone 5 mg tablet 5 mg PO QAM tab 12/18/18 05/26/21 History acetaminophen 500 mg tablet 1,000 mg PO BID PRN MDD \ 01/15/19 05/26/21 History folic acid 1 mg tablet 1 mg PO DAILY 02/20/20 05/26/21 History lisinopril 20 1 tab PO QAM 02/20/20 05/26/21 History mg-hydrochlorothiazide 12.5 mg tablet certolizumab pegol (Cimzia) 400 mg SUBCUT MONTHLY 08/15/20 05/26/21 History atorvastatin 20 mg tablet 20 mg PO QPM #90 tab 09/15/20 05/26/21 Rx Allergies Allergy/AdvReac Type Severity Reaction Status Date / Time oxycodone [From Percocet] AdvReac Mild Nausea, Verified 05/26/21 16:43 confusion propoxyphene AdvReac Mild Nausea Verified 05/26/21 16:43 [From Darvocet-N] Past Med/Surg History Medical History Basal cell carcinoma of lower extremity s/p excision HTN (hypertension) Obesity Osteoarthritis Rheumatoid arthritis Surgical History History of cataract surgery R/L (2019) History of surgery jaw bone implant History of tooth extraction Hx of knee surgery fatty tumor removed S/P appendectomy S/P bunionectomy S/P cholecystectomy S/P hysterectomy S/P tonsillectomy and adenoidectomy Family History Grandfather (Maternal) Prostate cancer Other Family history non-contributory Denies family history of Colon cancer Ovarian cancer Myocardial infarction Breast cancer Social History Smoking Status: Never smoker Second Hand Exposure: No; Hx Alcohol Use: Yes Alcohol type: beer Hx Substance Use: No Preferred Language: Citizen Of [place] Communication Ability: Effective 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 and A total of 10 systems reviewed and were otherwise negative Physical Exam Vital Signs Vital Signs - 24 hr 05/26/21 14:29 05/26/21 15:00 05/26/21 16:07 Temperature 37 C Temperature Source Oral Pulse Rate 89 Pulse Rate [Radial] 77 Respiratory Rate 20 18 Blood Pressure 147/100 H Blood Pressure [Right Arm] 127/85 Blood Pressure Mean 115 Blood Pressure Mean [Right Arm] 99 Pulse Oximetry 95 92 89 L Oxygen Delivery Method Nasal Cannula Nasal Cannula Room Air Oxygen Flow Rate 2 2 Sepsis Recent Fever Within 48 Hours No Sepsis New/Unexplained Change in Mental Status No Sepsis Action Taken by Nursing No Action Required 05/26/21 16:08 Temperature Temperature Source Pulse Rate Pulse Rate [Radial] 81 Respiratory Rate 20 Blood Pressure Blood Pressure [Right Arm] 150/97 H Blood Pressure Mean Blood Pressure Mean [Right Arm] 114 Pulse Oximetry 92 Oxygen Delivery Method Nasal Cannula Oxygen Flow Rate 2 Sepsis Recent Fever Within 48 Hours Sepsis New/Unexplained Change in Mental Status Sepsis Action Taken by Nursing Constitutional: Vital signs reviewed. Eyes: Pupils are equal round reactive to light. Conjunctiva are noninjected. ENT: Pharynx is clear without erythema or exudate. Mucous membranes are dry. Neck supple without meningeal signs. Respiratory: Clear to auscultation bilaterally. Breath sounds are equal bilaterally. Cardiovascular: Regular rate and rhythm. No rubs or gallops. GI: Soft, nondistended and nontender. Bowel sounds are present. Musculoskeletal: No peripheral edema. No lower extremity tenderness. Integumentary: No cyanosis. or jaundice. Neurological: The patient is awake and alert. No focal deficits. Psychiatric: Normal affect. Not anxious appearing. Course Administered Medications Sodium Chloride (Nss) 500 mls @ 125 mls/hr IV .Q4H TASIA Stop: 06/25/21 14:44 Last Admin: 05/26/21 14:49 Dose: 125 mls/hr Documented by: [id number] Discontinued Medications Dexamethasone Sodium Phosphate (DexamethasonePf 10 Mg/Ml Vial) 6 mg IV NOW ONE Stop: 05/26/21 16:13 Last Admin: 05/26/21 16:25 Dose: 6 mg Documented by: [id number] Ondansetron HCl (Ondansetron Inj 2 Mg/Ml 2 Ml Vial) 4 mg IV NOW STA Stop: 05/26/21 14:33 Last Admin: 05/26/21 14:49 Dose: 4 mg Documented by: [id number] Medical Decision Making Differential Diagnosis Gastroenteritis, foodborne illness, dehydration, electrolyte abnormality, COVID- 19, pneumonia, viral syndrome Medical Records Attestation: I reviewed the patient's medical records. I did perform a limited focused review of portions of the patient's old chart on the electronic medical record. The patient has had no recent pertinent visits to this hospital. Home Medications Current Medication List: was personally reviewed by me Laboratory Data Attestation: I reviewed the patient's lab results. Result diagrams: 05/26/21 14:30 05/26/21 14:30 Lab Results 11/23/21 11/23/21 11/23/21 Range/Units 14:30 14:30 15:15 WBC 6.88 (4.8-10.8) K/uL RBC 4.52 (4.2-5.4) M/uL Hgb 14.0 (12.0-16.0) g/dL Hct 42.5 (37-47) % MCV 94.0 (80-100) fL MCH 31.0 (25-34) pg MCHC 32.9 (32-36) g/dL RDW Std Deviation 48.3 H (36.4-46.3) fL RDW Coeff of Noa 14.0 (11.5-14.5) % Plt Count 225 (130-400) K/uL MPV 11.3 H (7.4-10.4) fL Immature Gran % (Auto) 0.9 % Neut % (Auto) 69.6 % Lymph % (Auto) 12.4 % [place] % (Auto) 16.6 % Eos % (Auto) 0.4 % Baso % (Auto) 0.1 % Neut # (Auto) 4.79 (1.4-6.5) K/uL Lymph # (Auto) 0.85 L (1.2-3.4) K/uL [place] # (Auto) 1.14 H (0.11-0.59) K/uL Eos # (Auto) 0.03 (0-0.5) K/uL Baso # (Auto) 0.01 (0-0.2) K/uL Immature Gran # (Auto) 0.06 H (0.00-0.02) K/uL Sodium 139 (136-145) mmol/L Potassium 4.4 (3.5-5.1) mmol/L Chloride 106 (98-107) mmol/L Carbon Dioxide 24 (21-32) mmol/L Anion Gap 9.0 (3-11) BUN 31 H (7-18) mg/dl Creatinine 1.10 (0.6-1.2) mg/dl Est Cr Clr Drug Dosing Not Reportable Est GFR ( Amer) 56.9 ml/min Est GFR (Non-Af Amer) 49.1 ml/min BUN/Creatinine Ratio 28.5 H (10-20) Glucose 102 H (70-99) mg/dl Calcium 9.2 (8.5-10.1) mg/dl Total Bilirubin 0.4 (0.2-1) mg/dl AST 29 (15-37) U/L ALT 34 (12-78) U/L Alkaline Phosphatase 81 (45-117) U/L Total Protein 7.8 (6.4-8.2) gm/dl Albumin 3.8 (3.4-5.0) gm/dl Globulin 4.0 (2.5-4.0) gm/dl Albumin/Globulin Ratio 1.0 (0.9-2) Lipase 159 (73-393) U/L SARS-CoV-2, RNA, NAAT POSITIVE A* (NEGATIVE) Imaging Data Radiologist's Impression: Chest X-Ray 05/26/21 14:32 XR chest 1V portable CLINICAL HISTORY: Cough. Evaluate for pneumonia. COMPARISON STUDY: Chest radiograph September 03, 2020. FINDINGS: Right shoulder arthroplasty is incidentally noted. Mild cardiomegaly is unchanged. There is no evidence for pulmonary edema. Apparent left basilar opacity is likely artifactual. There is no definite consolidation. Linear right infrahilar opacity favors atelectasis. IMPRESSION: Apparent hazy left basilar opacity. This is likely artifactual or represents epicardial fat-pad. A focus of pneumonia is considered less likely but could appear similar. ACT 112: Negative or not required by law. Electronically signed by: Shaq Bro M.D. 05/26/2021 2:59 PM MDM Narrative I did evaluate the patient as noted above. The patient is presenting with vomiting and diarrhea starting at 3:30 AM this morning. She has no associated abdominal pain or tenderness. She also has had 3 to 4 days of a minor cough and some sinus congestion. She has had no fevers or other signs of COVID-19. She is vaccinated. IV access was established. I did place an order for continuous cardiac monitoring. The monitor showed normal sinus rhythm at a rate of 89 bpm. I did treat her with normal saline IV and Zofran IV. I did order stool cultures. I did order and personally reviewed the images of the patient's chest x-ray as described above. She does appear to have a developing infiltrate in the left lower lobe.I did order and review the patient's blood work as noted in the electronic medical record. CBC does not demonstrate leukocytosis or anemia. She does have a slight lymphocytosis. Electrolytes are unremarkable. LFTs are unremarkable as well. Covid testing is positive. I did reassess the patient. She is feeling slightly better. I did discuss her test results with her. She was on oxygen so I did take her off of the oxygen to see what her room air saturation was. After just the minute or so her O2 saturation dropped to 89 so she was placed back on oxygen 2 L nasal cannula. O2 sat went up to 94%. I did recommend hospitalization. I did treat the patient with Decadron IV. I did discuss case with the hospitalist and case assistant Impression & Plan Hypoxemia, Pneumonia due to 2019-nCoV, Acute dehydration, Vomiting and diarrhea Discharge Plan Visit Data Chief Complaint: Nausea Stated Complaint: ILLNESS, ED Provider: Florian Taveras Discharge Problem: Hypoxemia, Pneumonia due to 2019-nCoV, Acute dehydration, Vomiting and diarrhea Patient Disposition: Being Evaluated by Hospitalist Forms Stand Alone Forms: My [facility] Prescriptions Prescriptions: No Action atorvastatin 20 mg tablet 20 mg PO QPM Qty: 90 RF: 3 alendronate 10 mg tablet 10 mg PO QAM RF: 0 prednisone 5 mg tablet 5 mg PO QAM RF: 0 Centrum Silver Women 8 mg iron-400 mcg-300 mcg tablet 1 tab PO DAILY Qty: 30 RF: 0 acetaminophen 500 mg Tablet 1,000 mg PO BID MDD \ PRN (Reason: aches and pains) RF: 0 lisinopril-hydrochlorothiazide 20-12.5 mg tablet 1 tab PO QAM RF: 0 folic acid 1 mg Tablet 1 mg PO DAILY RF: 0 Cimzia 400 mg/2 mL (200 mg/mL x 2) Syringe Kit 400 mg SUBCUT MONTHLY RF: 0 Referrals Referrals: Jose Rivera MD [Primary Care Provider] -
[2021-05-26] MEDS: SODIUM CHLORIDE 0.9% 500 ML IV SCH ×2 (14:49→18:05)
[2021-05-26 14:53] LABS: Basophils # (auto) 0.01 K/uL (0-0.2); Basophils % (auto) 0.1 %; Eosinophils # (auto) 0.03 K/uL (0-0.5); Eosinophils % (auto) 0.4 %; Hematocrit (blood only) 42.5 % (37-47); Immature Granulocytes # (auto) 0.06 K/uL (0.00-0.02); Immature Granulocytes % (auto) 0.9 %; Lymphocytes # (auto) 0.85 K/uL (1.2-3.4); Lymphocytes % (auto) 12.4 %; Mean Corpuscular Hgb Conc 32.9 g/dL (32-36); Mean Platelet Volume 11.3 fL (7.4-10.4); Monocytes # (auto) 1.14 K/uL (0.11-0.59); Monocytes % (auto) 16.6 %; Neutrophils # (auto) 4.79 K/uL (1.4-6.5); Neutrophils % (auto) 69.6 %; Platelet Count 225 K/uL (130-400); RDW Standard Deviation 48.3 fL (36.4-46.3); Red Blood Count 4.52 M/uL (4.2-5.4); White Blood Count 6.88 K/uL (4.8-10.8)
--- NOTE | 2021-05-26 15:00 | XRay Report ---
XR chest 1V portable CLINICAL HISTORY: Cough. Evaluate for pneumonia. COMPARISON STUDY: Chest radiograph September 03, 2020. FINDINGS: Right shoulder arthroplasty is incidentally noted. Mild cardiomegaly is unchanged. There is no evidence for pulmonary edema. Apparent left basilar opacity is likely artifactual. There is no de finite consolidation. Linear right infrahilar opacity favors atelectasis. IMPRESSION: Apparent hazy left basilar opacity. This is likely artifactual or represents epicardial fat-pad. A fo cus of pneumonia is considered less likely but could appear similar. ACT 112: Negative or not required by law. Electronically signed by: Shaq Bro M.D. 05/26/2021 2:59 PM
[2021-05-26 15:15] LABS: Alanine Aminotransferase 34 U/L (12-78); Albumin Level 3.8 gm/dl (3.4-5.0); Aspartate Aminotransferase 29 U/L (15-37); BUN Creatinine Ratio 28.5 (10-20); Blood Urea Nitrogen 31 mg/dl (7-18); Calcium 9.2 mg/dl (8.5-10.1); Carbon Dioxide 24 mmol/L (21-32); Chloride 106 mmol/L (98-107); Est GFR (African American) 56.9 ml/min; Est GFR (Non-African American) 49.1 ml/min; Glucose 102 mg/dl (70-99); Lipase 159 U/L (73-393); Potassium 4.4 mmol/L (3.5-5.1); Sodium 139 mmol/L (136-145)
[2021-05-26 15:18] LABS: Alkaline Phosphatase 81 U/L (45-117); Bilirubin,Total 0.4 mg/dl (0.2-1); Total Protein 7.8 gm/dl (6.4-8.2)
[2021-05-26] MEDS ORDERED: dexAMETHasone**PF** 10 MG/ML VIAL IV ONE (16:12)
--- NOTE | 2021-05-26 17:12 | History & Physical Report ---
Date of Service May 26, 2021 Assessment & Plan (1) Pneumonia due to 2019-nCoV: Plan: - Admit to COVID unit - Continue supplemental O2 - Pt agreeable to remdesevir and dexamethasone - both ordered - Daily labs - Zofran PRN for nausea (2) Hypoxemia: Plan: See plan for #1 (3) Rheumatoid arthritis: Plan: Holding Cimzia and prednisone due to #1 (4) HTN (hypertension): Plan: - Continue home meds and monitor (5) Hyperlipidemia: Plan: - Continue statin (6) CKD (chronic kidney disease) stage 3, GFR 30-59 ml/min: Plan: - Monitor labs daily Plan: Pt seen and reviewed with collaborating physician, Dr. Corona. Plan of care discussed and as outlined above. DVT Prophylaxis: Lovenox BID Code Status: Full code Sandrita Warner PA-C History of Present Illness Chief Complaint: N/V Primary Care Provider: Jose Rivera MD This is a 76 y/o female with a PMH of RA on Cimzia and chronic prednisone, CKD 3b, osteoporosis, and HTN who presents to the ED today with N/V. She started earlier today with DOHERTY, sinus pressure, nausea, vomiting, mild cough. Denies SOB, chest pain, edema. Chronic leg pain due to RA that is no worse than usual - on Cimzia once a month (received last week). Had diarrhea this morning but better this afternoon. No blood in stools. 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 She was vaccinated in Aug/Sep and was to have the booster tomorrow. Denies hx of underlying lung disease. No prior hx GI bleed. Reports N/V have improved with Zofran given in the ED. Allergies Allergy/AdvReac Type Severity Reaction Status Date / Time oxycodone [From Percocet] AdvReac Mild Nausea, Verified 05/26/21 16:43 confusion propoxyphene AdvReac Mild Nausea Verified 05/26/21 16:43 [From Darvocet-N] Home Medications Medication Instructions Recorded Confirmed Type alendronate 10 mg tablet 10 mg PO QAM tab 12/18/18 05/26/21 History multivit with 1 tab PO DAILY #30 tab 12/18/18 05/26/21 Rx wcijdmbc-nwdb-YR-lutein 8 mg iron-400 mcg-300 mcg tablet (Centrum Silver Women) prednisone 5 mg tablet 5 mg PO QAM tab 12/18/18 05/26/21 History acetaminophen 500 mg tablet 1,000 mg PO BID PRN MDD \ 01/15/19 05/26/21 History folic acid 1 mg tablet 1 mg PO DAILY 02/20/20 05/26/21 History lisinopril 20 1 tab PO QAM 02/20/20 05/26/21 History mg-hydrochlorothiazide 12.5 mg tablet certolizumab pegol (Cimzia) 400 mg SUBCUT MONTHLY 08/15/20 05/26/21 History atorvastatin 20 mg tablet 20 mg PO QPM #90 tab 09/15/20 05/26/21 Rx Past Med/Surg History Medical History Basal cell carcinoma of lower extremity s/p excision CKD (chronic kidney disease) stage 3, GFR 30-59 ml/min HTN (hypertension) Humeral head fracture Obesity Osteoarthritis Rheumatoid arthritis Subperiosteal abscess of jaw Surgical History History of cataract surgery R/L (2019) History of surgery jaw bone implant History of tooth extraction Hx of knee surgery fatty tumor removed S/P appendectomy S/P bunionectomy S/P cholecystectomy S/P hysterectomy S/P tonsillectomy and adenoidectomy Status post reverse arthroplasty of right shoulder (~09/2020) Family History Grandfather (Maternal) Prostate cancer Other Family history non-contributory Denies family history of Colon cancer Ovarian cancer Myocardial infarction Breast cancer Social History Smoking Status: Never smoker Second Hand Exposure: No; Hx Alcohol Use: Yes Alcohol type: beer Hx Substance Use: No Preferred Language: Nepali Communication Ability: Effective Driller Portable Required: No Beliefs That Will Affect Care: None Current Living Situation: Spouse Feels Safe at Home: Yes Assistive Devices: Denture - Upper, Denture - Lower and Glasses Review of Systems Review of Systems: All systems reviewed & are unremarkable except as noted in HPI & below Constitutional: + fatigue and + weakness; no fever, no chills and no sweats Eyes: no diplopia Ear, Nose, Mouth, Throat: + sinus pain/pressure; no nasal congestion, no nasal discharge and no sore throat Respiratory: + cough; no dyspnea, no hemoptysis and no wheezing Cardiovascular: no chest pain, no palpitations, no syncope and no edema Gastrointestinal: + nausea, + vomiting and + diarrhea/loose stools; no abdominal pain and no blood in stools Genitourinary: no dysuria and no urinary frequency Musculoskeletal: + joint pain (chronic due to RA) Integumentary: no rash and no yellowing of the skin Neurologic: + generalized weakness and + headache(s); no dizziness Psychiatric: + anxiety (related to dx of COVID); no depression Physical Exam Constitutional: well developed and well nourished; no acute distress Eyes: + anicteric sclerae ENMT: Mouth: oral mucous membranes not dry Neck: trachea midline Respiratory: no respiratory distress and no labored breathing Auscultation: + diminished lung sounds; no rales, no rhonchi and no wheezes Cardiovascular: Rate/Rhythm: regular rate and regular rhythm Heart Sounds: no murmur Vessels: dorsalis pedis pulses present and radial pulses present Extremities: no pedal edema Gastrointestinal (Abdomen): Inspection/Auscultation: normal bowel sounds; abdomen not distended Percussion/Palpation: abdomen soft; abdomen nontender Musculoskeletal: Head/Neck/Chest: normocephalic, head atraumatic and neck supple Skin: normal turgor; no jaundice Neurologic: moves all extremities; no focal motor deficits Psychiatric: Orientation: alert and oriented x 3 Mood: + anxious mood Results & Data Results & Data ([facility]) Vital Signs (Past 12 Hours) Vital Signs Temp Pulse Pulse Resp BP BP Pulse Ox 05/26/21 16:08 81 20 150/97 H 92 05/26/21 16:07 89 L 05/26/21 15:00 77 18 127/85 92 05/26/21 14:29 37 C 89 20 147/100 H 95 Laboratory Results Laboratory Results - last 24 hr 05/26/21 05/26/21 05/26/21 14:30 14:30 15:15 WBC 6.88 RBC 4.52 Hgb 14.0 Hct 42.5 MCV 94.0 MCH 31.0 MCHC 32.9 RDW Std Deviation 48.3 H RDW Coeff of Noa 14.0 Plt Count 225 MPV 11.3 H Immature Gran % (Auto) 0.9 Neut % (Auto) 69.6 Lymph % (Auto) 12.4 [place] % (Auto) 16.6 Eos % (Auto) 0.4 Baso % (Auto) 0.1 Neut # (Auto) 4.79 Lymph # (Auto) 0.85 L [place] # (Auto) 1.14 H Eos # (Auto) 0.03 Baso # (Auto) 0.01 Immature Gran # (Auto) 0.06 H Sodium 139 Potassium 4.4 Chloride 106 Carbon Dioxide 24 Anion Gap 9.0 BUN 31 H Creatinine 1.10 Est Cr Clr Drug Dosing Not Reportable Est GFR ( Amer) 56.9 Est GFR (Non-Af Amer) 49.1 BUN/Creatinine Ratio 28.5 H Glucose 102 H Calcium 9.2 Total Bilirubin 0.4 AST 29 ALT 34 Alkaline Phosphatase 81 Total Protein 7.8 Albumin 3.8 Globulin 4.0 Albumin/Globulin Ratio 1.0 Lipase 159 SARS-CoV-2, RNA, NAAT POSITIVE A* Diagnostic Findings Chest X-ray 05/26/21 - IMPRESSION:Apparent hazy left basilar opacity. This is likely artifactual or represents epicardial fat-pad. A focus of pneumonia is considered less likely but could appear similar. Medications Administered Sodium Chloride (Nss) 500 mls @ 125 mls/hr IV .Q4H TASIA Stop: 06/25/21 14:44 Last Admin: 05/26/21 18:05 Dose: 125 mls/hr Documented by: [id number] Infusion: 05/26/21 18:05 Dose: 125 mls/hr Documented by: [id number] Admin: 05/26/21 14:49 Dose: 125 mls/hr Documented by: [id number] Discontinued Medications Dexamethasone Sodium Phosphate (DexamethasonePf 10 Mg/Ml Vial) 6 mg IV NOW ONE Stop: 05/26/21 16:13 Last Admin: 05/26/21 16:25 Dose: 6 mg Documented by: [id number] Ondansetron HCl (Ondansetron Inj 2 Mg/Ml 2 Ml Vial) 4 mg IV NOW STA Stop: 05/26/21 14:33 Last Admin: 05/26/21 14:49 Dose: 4 mg Documented by: [id number] Supervising Physician Co-Signing Physician Notes Pt is a 76 y/o F with hx of RA on DMARD, Osteoporosis, HTN, HLD admitted for COVID pneumonia with hypoxia. Exam: NAD, NC in place Lungs: b/l lower lobe rales Cardiac: normal S1/S2, no murmur Abd: ND, NT, Soft MSk: no edema Psych: AAOx3 A/P: COVID pneumonia with hypoxia: -CXR: Apparent hazy left basilar opacity. This is likely artifactual or represents epicardial fat-pad. A focus of pneumonia is considered less likely but could appear similar. - LFTs and GFR are normal -will start the pt on Remdesivir and Dexamethasone -continue on oxygen supplement right now -encourage frequent change of position (including proning) -daily CMP and CRP -DVT ppx ordered Agree with A/P by Lexi Warner PA-C
[2021-05-26] MEDS ORDERED: REMDESIVIR 200 MG in SODIUM CHLORIDE 0.9% 210 ML IV STA (18:20)
[2021-05-26] MEDS ORDERED: ACETAMINOPHEN 325 MG TAB PO STA (18:44)
[2021-05-26] MEDS ORDERED: ACETAMINOPHEN 325 MG TAB PO PRN (18:53)
[2021-05-26] MEDS ORDERED: ONDANSETRON INJ 2 MG/ML 2 ML VIAL IV PRN (21:15)
[2021-05-26] MEDS ORDERED: PATIENT'S HEIGHT AND/OR WEIGHT NEEDED SCH (21:45)
[2021-05-26] MEDS: SODIUM CHLORIDE 0.9% 10ML FLUSH IV SCH (22:03)
[2021-05-26] MEDS: ENOXAPARIN INJ 40 MG/0.4 ML SYR SQ SCH (23:08)
[2021-05-26] MEDS: ATORVASTATIN 20 MG TAB PO SCH (23:09)
[2021-05-27 05:23] LABS: Hematocrit (blood only) 40.3 % (37-47); Immature Granulocytes # (auto) 0.03 K/uL (0.00-0.02); Immature Granulocytes % (auto) 0.5 %; Lymphocytes # (auto) 0.97 K/uL (1.2-3.4); Lymphocytes % (auto) 17.1 %; Mean Corpuscular Hemoglobin 30.5 pg (25-34); Mean Corpuscular Hgb Conc 32.3 g/dL (32-36); Mean Corpuscular Volume 94.6 fL (80-100); Mean Platelet Volume 11.2 fL (7.4-10.4); Neutrophils # (auto) 4.28 K/uL (1.4-6.5); Neutrophils % (auto) 75.4 %; Platelet Count 219 K/uL (130-400); RDW Standard Deviation 48.3 fL (36.4-46.3); Red Blood Count 4.26 M/uL (4.2-5.4); White Blood Count 5.68 K/uL (4.8-10.8)
[2021-05-27 05:51] LABS: Alanine Aminotransferase 32 U/L (12-78); Albumin Level 2.9 gm/dl (3.4-5.0); Alkaline Phosphatase 64 U/L (45-117); Aspartate Aminotransferase 25 U/L (15-37); BUN Creatinine Ratio 28.6 (10-20); Bilirubin Direct < 0.1 mg/dl (0-0.2); Bilirubin,Total 0.3 mg/dl (0.2-1); Blood Urea Nitrogen 35 mg/dl (7-18); Calcium 8.2 mg/dl (8.5-10.1); Carbon Dioxide 28 mmol/L (21-32); Chloride 107 mmol/L (98-107); Creatinine Clr Calc Pharmacy 45.9 ml/min; Est GFR (African American) 50.2 ml/min; Est GFR (Non-African American) 43.3 ml/min; Glucose 121 mg/dl (70-99); Potassium 5.3 mmol/L (3.5-5.1); Sodium 137 mmol/L (136-145); Total Protein 6.5 gm/dl (6.4-8.2)
[2021-05-27] MEDS: SODIUM CHLORIDE 0.9% 500 ML IV SCH ×2 (05:53→10:25)
[2021-05-27] MEDS: SODIUM CHLORIDE 0.9% 1000ML 1,000 ML IV SCH ×2 (05:59→13:58)
[2021-05-27] MEDS: FOLIC ACID 1 MG TAB PO SCH (09:12)
[2021-05-27] MEDS: ENOXAPARIN INJ 40 MG/0.4 ML SYR SQ SCH ×2 (09:12→21:00)
[2021-05-27] MEDS: LISINOPRIL/HCTZ 20/12.5MG 1 TAB TAB PO SCH (09:12)
[2021-05-27] MEDS: dexAMETHasone 6 MG in SYRINGE 0 ML IV SCH (09:12)
[2021-05-27] MEDS: ALENDRONATE SODIUM 10 MG TAB PO SCH (09:17)
--- NOTE | 2021-05-27 17:33 | Discharge Summary ---
Date of Service May 27, 2021 Admission HPI Per Admitting Provider This is a 76 y/o female with a PMH of RA on Cimzia and chronic prednisone, CKD 3b, osteoporosis, and HTN who presents to the ED today with N/V. She started earlier today with DOHERTY, sinus pressure, nausea, vomiting, mild cough. Denies SOB, chest pain, edema. Chronic leg pain due to RA that is no worse than usual - on Cimzia once a month (received last week). Had diarrhea this morning but better this afternoon. No blood in stools. 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 She was vaccinated in Aug/Sep and was to have the booster tomorrow. Denies hx of underlying lung disease. No prior hx GI bleed. Reports N/V have improved with Zofran given in the ED. Discharge Data Allergies Allergy/AdvReac Type Severity Reaction Status Date / Time oxycodone [From Percocet] AdvReac Mild Nausea, Verified 05/26/21 16:43 confusion propoxyphene AdvReac Mild Nausea Verified 05/26/21 16:43 [From Darvocet-N] Consultations 05/26/21 16:12 ED Decision to Admit Stat Discharge Plan Discharge Items Reason For Visit: COVID, HYPOXIA Follow-up/Referrals: Darci Sparks DO [Primary Care Provider] - Medications and DC Order Prescriptions: No Action atorvastatin 20 mg tablet 20 mg PO QPM Qty: 90 RF: 3 alendronate 10 mg tablet 10 mg PO QAM RF: 0 prednisone 5 mg tablet 5 mg PO QAM RF: 0 Centrum Silver Women 8 mg iron-400 mcg-300 mcg tablet 1 tab PO DAILY Qty: 30 RF: 0 acetaminophen 500 mg Tablet 1,000 mg PO BID MDD \ PRN (Reason: aches and pains) RF: 0 lisinopril-hydrochlorothiazide 20-12.5 mg tablet 1 tab PO QAM RF: 0 folic acid 1 mg Tablet 1 mg PO DAILY RF: 0 Cimzia 400 mg/2 mL (200 mg/mL x 2) Syringe Kit 400 mg SUBCUT MONTHLY RF: 0 Admission Data Admit Date/Time: 05/26/21 18:20 Attending Provider: Lynda Bennett I. Admit Provider: Danny Wayne Primary Care Provider: Darci Sparks Other Providers: Jadyn Corona ; Danny Wayne
--- NOTE | 2021-05-27 17:33 | Hospitalist Progress Note ---
Date of Service May 27, 2021 Assessment & Plan (1) Pneumonia due to 2019-nCoV: Plan: Positive for COVID-19. Chest x-ray reports apparent hazy left basilar opacity. Was hypoxic at 89% in ER. Started on oxygen Currently saturating 9798% on oxygen. Wean off oxygen as tolerated Currently on dexamethasone and remdesivir Patient symptoms resolving. We will get ambulatory pulse ox on discharge. (2) Hypoxemia: Plan: As above (3) Rheumatoid arthritis: Plan: Plan to resume home Cimzia and prednisone on discharge (4) HTN (hypertension): Plan: Continue home meds and monitor (5) Hyperlipidemia: Plan: Continue statin (6) CKD (chronic kidney disease) stage 3, GFR 30-59 ml/min: Plan: Creatinine at baseline Avoid nephrotoxins Plan: Lovenox subcu for DVT prophylaxis If patient continues to improve as expected, will anticipate discharge in the next day or 2 Admission and Anticipated Discharge Date Admission Date: May 26, 2021 Subjective 76 y/o female with a PMH of RA on Cimzia and chronic prednisone, CKD 3b, osteoporosis, and HTN who presents to the ED today with Nausea, vomiting, sinus pressure, headache Found to be hypoxic on admission with positive Covid test and possible pneumonia on x-ray. Patient seen and examined today. Reports nausea and vomiting has resolved. No headache at this time. Reports mild intermittent cough unchanged. Denies any shortness of breath Denies any diarrhea, abdominal pain Denies any dysuria, frequency, urgency Denies any fevers, chills Physical Exam Constitutional: + well hydrated and + obese; no acute distress Eyes: PERRL, conjunctivae normal, anicteric sclerae ENMT: external ear and nose normal, oropharynx normal Respiratory: normal respiratory effort, lungs clear to auscultation Cardiovascular: RRR, S1-S2 Gastrointestinal (Abdomen): normal bowel sounds, soft, nontender, no hepatosplenomegaly Musculoskeletal: No pedal edema Neurologic: PERRL, EOMI, accommodation nl, no face palsy, no dysarthria Psychiatric: A+Ox3, euthymic affect Results & Data Results & Data ([facility]) Vital Signs (Past 12 Hours) Vital Signs Pulse Pulse Resp BP Pulse Ox 05/27/21 16:00 75 05/27/21 14:02 71 20 137/80 97 05/27/21 05:51 67 16 147/85 H 95 Laboratory Results Abnormal lab results 05/27/21 05/27/21 Range/Units 04:57 04:57 RDW Std Deviation 48.3 H (36.4-46.3) fL MPV 11.2 H (7.4-10.4) fL Lymph # (Auto) 0.97 L (1.2-3.4) K/uL Immature Gran # (Auto) 0.03 H (0.00-0.02) K/uL Potassium 5.3 H D (3.5-5.1) mmol/L Anion Gap 2.0 L (3-11) BUN 35 H (7-18) mg/dl Creatinine 1.22 H (0.6-1.2) mg/dl BUN/Creatinine Ratio 28.6 H (10-20) Glucose 121 H (70-99) mg/dl Calcium 8.2 L (8.5-10.1) mg/dl Albumin 2.9 L (3.4-5.0) gm/dl
[2021-05-27] MEDS ORDERED: REMDESIVIR 100 MG in SODIUM CHLORIDE 0.9% 230 ML IV SCH (20:00)
[2021-05-27] MEDS: ATORVASTATIN 20 MG TAB PO SCH (20:57)
[2021-05-27] MEDS: SODIUM CHLORIDE 0.9% 10ML FLUSH IV SCH (20:57)
[2021-05-28 01:24] LABS: Magnesium 1.7 mg/dl (1.8-2.4); Potassium 4.1 mmol/L (3.5-5.1)
[2021-05-28] MEDS ORDERED: MAGNESIUM SULFATE / D5W 1 GM/100 ML BAG IV ONE ×2 (07:00→09:25)
[2021-05-28] MEDS: LISINOPRIL/HCTZ 20/12.5MG 1 TAB TAB PO SCH (08:06)
[2021-05-28] MEDS: FOLIC ACID 1 MG TAB PO SCH (08:06)
[2021-05-28] MEDS: ALENDRONATE SODIUM 10 MG TAB PO SCH (08:06)
[2021-05-28] MEDS: dexAMETHasone 6 MG in SYRINGE 0 ML IV SCH (08:06)
[2021-05-28 08:21] LABS: Hematocrit (blood only) 39.6 % (37-47); Immature Granulocytes # (auto) 0.01 K/uL (0.00-0.02); Immature Granulocytes % (auto) 0.1 %; Lymphocytes % (auto) 27.5 %; Mean Corpuscular Hemoglobin 30.7 pg (25-34); Mean Corpuscular Hgb Conc 32.8 g/dL (32-36); Mean Corpuscular Volume 93.6 fL (80-100); Monocytes # (auto) 0.79 K/uL (0.11-0.59); Monocytes % (auto) 10.9 %; Neutrophils # (auto) 4.48 K/uL (1.4-6.5); Neutrophils % (auto) 61.5 %; Platelet Count 239 K/uL (130-400); RDW Coefficient of Variation 14.2 % (11.5-14.5); RDW Standard Deviation 48.8 fL (36.4-46.3); Red Blood Count 4.23 M/uL (4.2-5.4); White Blood Count 7.28 K/uL (4.8-10.8)
[2021-05-28 08:51] LABS: Alanine Aminotransferase 28 U/L (12-78); Aspartate Aminotransferase 25 U/L (15-37); BUN Creatinine Ratio 29.5 (10-20); Bilirubin Direct < 0.1 mg/dl (0-0.2); Blood Urea Nitrogen 32 mg/dl (7-18); Calcium 8.7 mg/dl (8.5-10.1); Carbon Dioxide 24 mmol/L (21-32); Chloride 109 mmol/L (98-107); Creatinine Clr Calc Pharmacy 51.8 ml/min; Est GFR (African American) 58.2 ml/min; Est GFR (Non-African American) 50.2 ml/min; Glucose 88 mg/dl (70-99); Sodium 141 mmol/L (136-145)
[2021-05-28 08:54] LABS: Albumin Globulin Ratio 0.8 (0.9-2); Alkaline Phosphatase 60 U/L (45-117); Bilirubin,Total 0.4 mg/dl (0.2-1); Globulin 3.6 gm/dl (2.5-4.0); Total Protein 6.6 gm/dl (6.4-8.2)
--- NOTE | 2021-05-28 09:46 | Discharge Summary ---
Date of Service May 28, 2021 Admission HPI Per Admitting Provider This is a 76 y/o female with a PMH of RA on Cimzia and chronic prednisone, CKD 3b, osteoporosis, and HTN who presents to the ED today with N/V. She started earlier today with DOHERTY, sinus pressure, nausea, vomiting, mild cough. Denies SOB, chest pain, edema. Chronic leg pain due to RA that is no worse than usual - on Cimzia once a month (received last week). Had diarrhea this morning but better this afternoon. No blood in stools. 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 She was vaccinated in Aug/Sep and was to have the booster tomorrow. Denies hx of underlying lung disease. No prior hx GI bleed. Reports N/V have improved with Zofran given in the ED. Admission Exam Per Admitting Provider Constitutional: well developed and well nourished; no acute distress Eyes: + anicteric sclerae ENMT: Mouth: oral mucous membranes not dry Neck: trachea midline Respiratory: no respiratory distress and no labored breathing Auscultation: + diminished lung sounds; no rales, no rhonchi and no wheezes Cardiovascular: Rate/Rhythm: regular rate and regular rhythm Heart Sounds: no murmur Vessels: dorsalis pedis pulses present and radial pulses present Extremities: no pedal edema Gastrointestinal (Abdomen): Inspection/Auscultation: normal bowel sounds; abdomen not distended Percussion/Palpation: abdomen soft; abdomen nontender Musculoskeletal: Head/Neck/Chest: normocephalic, head atraumatic and neck supple Skin: normal turgor; no jaundice Neurologic: moves all extremities; no focal motor deficits Psychiatric: Orientation: alert and oriented x 3 Mood: + anxious mood Principal Diagnosis Acute hypoxic respiratory failure COVID 19 Pneumonia Discharge Exam Constitutional + well hydrated and + obese; no acute distress Eyes PERRL, conjunctivae normal, anicteric sclerae ENMT external ear and nose normal, oropharynx normal Respiratory normal respiratory effort, lungs clear to auscultation Cardiovascular RRR S1 S2 Gastrointestinal (Abdomen) normal bowel sounds, soft, nontender, no hepatosplenomegaly Musculoskeletal No pedal edema Neurologic PERRL, EOMI, accommodation nl, no face palsy, no dysarthria Psychiatric A+Ox3, euthymic affect Discharge Data Allergies Allergy/AdvReac Type Severity Reaction Status Date / Time oxycodone [From Percocet] AdvReac Mild Nausea, Verified 05/26/21 16:43 confusion propoxyphene AdvReac Mild Nausea Verified 05/26/21 16:43 [From Radha-N] Consultations 05/26/21 16:12 ED Decision to Admit Stat Hospital Course (1) Pneumonia due to 2019-nCoV: Positive for COVID-19. Chest x-ray reports apparent hazy left basilar opacity. Was hypoxic at 89% in ER. Started on oxygen Was started on dexamethasone and remdesivir Oxygen was quickly weaned off Today, reports mild cough and all other symptoms resolved She will like to go home today 2 step did not indicate any oxygen need at rest and with activity Patient provided education about COVID 19 pneumonia and discharged home (2) Hypoxemia: (3) Rheumatoid arthritis: Continue home Cimzia and prednisone (4) HTN (hypertension): Continue home meds and monitor (5) Hyperlipidemia: Continue statin (6) CKD (chronic kidney disease) stage 3, GFR 30-59 ml/min: Creatinine at baseline Avoid nephrotoxins Total Time Total Time Spent Total Time Spent (In Minutes): 45 Total Time Includes: Examination of the Patient, Discharge Planning and Medication Reconciliation Discharge Plan Discharge Items Patient Disposition: Home - Self-Care Reason For Visit: Nausea, vomiting Discharge Diagnosis: Acute hypoxic respiratory failure COVID 19 Pneumonia Activity: Resume your previous activity Non-emergency contact: Primary Care Provider Call non-emergency contact if: you have any medication questions and your symptoms worsen Follow-up/Referrals: Darci Sparks DO [Primary Care Provider] - Diet: Heart Healthy Addtl Attending Provider Instructions: Mrs. Salter Came to the hospital complaining of nausea, vomiting, cough. You were evaluated and found to have COVID-19 pneumonia. You also had low oxygen level required nasal oxygen briefly. You were started on treatment and your symptoms improved. You are being discharged home. Please ensure follow up with your Primary Doctor. It was a pleasure taking care of you. Pending Studies at Discharge: No Stand-Alone Forms: [employer], Smoking Cessation Medications and DC Order Prescriptions: Continued atorvastatin 20 mg tablet 20 mg PO QPM Qty: 90 RF: 3 alendronate 10 mg tablet 10 mg PO QAM RF: 0 prednisone 5 mg tablet 5 mg PO QAM RF: 0 Centrum Silver Women 8 mg iron-400 mcg-300 mcg tablet 1 tab PO DAILY Qty: 30 RF: 0 acetaminophen 500 mg Tablet 1,000 mg PO BID MDD \ PRN (Reason: aches and pains) RF: 0 lisinopril-hydrochlorothiazide 20-12.5 mg tablet 1 tab PO QAM RF: 0 folic acid 1 mg Tablet 1 mg PO DAILY RF: 0 Cimzia 400 mg/2 mL (200 mg/mL x 2) Syringe Kit 400 mg SUBCUT MONTHLY RF: 0 Discharge Orders: Discharge Order (Routine); Ordered 05/28/21 Ordered By: Lynda Bennett Admission Data Admit Date/Time: 05/26/21 18:20 Attending Provider: Lynda Bennett I. Admit Provider: Danny Wayne Primary Care Provider: Darci Sparks Other Providers: Jadyn Corona ; Danny Wayne Other Interventions: Discharge Summary Assessment (RN) Last Done: 05/28/21 11:05
[2021-05-28] MEDS: ENOXAPARIN INJ 40 MG/0.4 ML SYR SQ SCH (09:57)
== END 2021-05-28 11:30 | disposition home or self-care (01) | DRG 177 ==
LOC: ED 14:23 → SUATTDRO 18:20 → EDINP 18:20 → 2W 05-27 15:58